=== PATIENT | male | born 1935 | race African-American/Black ===

== ENCOUNTER 2022-03-25 23:36 | Emergency (ER) | payer MEDICARE, OTHER ==
[~2022-03-25] VITALS: Ht 175.3 cm; Wt 91.0 kg
[2022-03-26] MEDS ORDERED: HYDROCODONE/ACETAMINOPHEN 5/325MG TABLET PO ONE (01:00)
[2022-03-26] MEDS ORDERED: HYDROCODONE/ACETAMINOPHEN 5/325MG TABLET PO NR (02:45)
[2022-03-26 02:50] VITALS: BP 180/100
[2022-03-26] MEDS ORDERED: IBUP-2029 MT (03:11)
== END 2022-03-26 03:37 | disposition home or self-care (01) ==
LOC: ER 03-26 00:03
DX: S22.42XA Multiple fractures of ribs, left side, initial encounter for closed fracture (principal); I10 Essential (primary) hypertension; E78.00 Pure hypercholesterolemia, unspecified; W18.2XXA Fall in (into) shower or empty bathtub, initial encounter; Y93.E1 Activity, personal bathing and showering; Y92.012 Bathroom of single-family (private) house as the place of occurrence of the external cause
CPT/HCPCS: 71101; 99283